=== PATIENT | female | born 1975 | race Hispanic/Latino ===

== ENCOUNTER 2021-04-20 10:03 | Outpatient (CLI) | payer OTHER, SELFPAY ==
--- NOTE | ~2021-04-20 | MM_ITS ---
EXAMINATION: MM screening [place] BI w jese HISTORY: Screening mammogram TECHNIQUE: Craniocaudal and mediolateral oblique 3-D tomosynthesis images were obtained and synthetic 2-D images were generated. CAD analysis was submitted and interpreted. COMPARISON: No prior mammogram is available for comparison at this institution. BREAST PARENCHYMAL COMPOSITION: The breasts are heterogeneously dense, which may obscure small masses . FINDINGS: RIGHT BREAST: There is a low-density mass in the anterior third of the outer breast. LEFT BREAST: There is no evidence of suspicious mass, calcification, or architectural distortion to s uggest malignancy. IMPRESSION: 1. Right breast mass. 2. Additional mammographic views and possible breast ultrasound are recommended. BI-RADS Category 0: Incomplete: Needs additional imaging evaluation. Reviewed, dictated and finalized at location A. IMPRESSION: 1. Right breast mass. 2. Additional mammographic views and possible breast ultrasound are recommended . BI-RADS Category 0: Incomplete: Needs additional imaging evaluation.
== END 2021-04-20 10:04 | disposition home or self-care (01) ==
LOC: ANHIMG 10:06
DX: Z12.31 Encounter for screening mammogram for malignant neoplasm of breast (principal); R92.8 Other abnormal and inconclusive findings on diagnostic imaging of breast
CPT/HCPCS: 77063; 77067

== ENCOUNTER → 2021-05-19 08:34 | Outpatient (CLI) | payer OTHER, SELFPAY ==
--- NOTE | ~2021-05-19 | MMUS_ITS ---
EXAMINATION: MM diagnostic [place] RT w jese, US breast RT complete HISTORY: Right breast mass seen on recent mammogram. TECHNIQUE: Additional 3-D tomosynthesis images of the right breast were performed and synthetic 2-D i mages were generated. CAD analysis was submitted and interpreted. High resolution complete right delio st ultrasound was performed. COMPARISON: Comparison to multiple prior studies sequentially, with oldest reviewed study dated 01/01. BREAST PARENCHYMAL COMPOSITION: The breasts are extremely dense, which lowers the sensitivity of mamm ography. FINDINGS: MAMMOGRAPHIC FINDINGS: There is a periareolar mass in the right breast measuring approximately 1.4 cm. There are no suspicio us calcifications or architectural distortion. ULTRASOUND: There are multiple cysts in the right breast, largest at 9:00, 2 cm from the nipple measuring 1.3 cm corresponding to the mass seen on mammography. At 11:00, 2 cm from the nipple, there is an oval hypoe choic mass which is partially cystic measuring 1.1 x 1 x 0.4 cm, likely a cluster of microcysts. IMPRESSION: 1. Probable benign cluster of microcysts at 11:00, 2 cm from the nipple. 2. Recommend 6 month follow-up targeted right breast ultrasound BI-RADS category 3, probably benign findings. Reviewed, dictated and finalized at location A. IMPRESSION: 1. Probable benign cluster of microcysts at 11:00, 2 cm from the nipple. 2. Recommend 6 month follow-up targeted right breast ultrasound BI-RADS category 3, probably benign findings.
== END ==
DX: R92.8 Other abnormal and inconclusive findings on diagnostic imaging of breast (principal)
CPT/HCPCS: 76641; 77061; 77065; G0279

== ENCOUNTER 2021-06-19 00:37 | Day surgery (SDC) | payer OTHER, SELFPAY ==
[2021-06-02 11:30] VITALS: BMI 21.3
--- NOTE | 2021-06-18 14:15 | PM.HPGS ---
History of Present Illness History of Present Illness Consent: Risks, benefits, and alternatives have been discussed and questions answered. Patient agrees to proceed with procedure. Chief complaint: neoplasm screening Narrative: Binta De Luna is a 46 year old female referred for colon cancer screening. Review of Systems Review of Systems: All systems reviewed & are unremarkable except as noted in HPI and below PMFSH Surgical History Surgical History Hx of tonsillectomy Social History Social History Smoking status: Never smoker Alcohol intake: current Living arrangements: with family Spiritual care concerns: No Meds Home Medications and Allergies Home Medications Medication Instructions Recorded Confirmed Type No Home Medications 06/02/21 06/19/21 History Allergies Allergy/AdvReac Type Severity Reaction Status Date / Time ciprofloxacin Allergy Mild Rash Verified 06/19/21 06:18 Exam Const: General: alert Orientation/consciousness: patient oriented x3 Resp: Auscultation: clear to auscultation bilaterally Cardio: Rhythm: regular rhythm GI: GI Palp: Yes Soft to palpation and No Tenderness to palpation present (GI) Neuro: General: patient oriented x3 Assessment and Plan Assessment and plan (1) Colon cancer screening: Code(s): Z12.11 - Encounter for screening for malignant neoplasm of colon Status: Acute Assessment and Plan: Colonoscopy with possible biopsy or polypectomy or cautery or injection of substances.
[2021-06-19] MEDS: LACTATED RINGERS 1,000 ML 150 ML IV CONT (06:31)
--- NOTE | 2021-06-19 06:43 | WPDANESEPPF ---
Anes - Initial Pre Proc Eval Procedure: Operation Date: 06/19/21 07:30 Proposed Procedures p Screening Colonoscopy - Sukhwinder Aguilar MD Date/Time: 06/19/21 06:43 Surgeon: Sukhwinder Aguilar MD Pre Op Diagnosis: neoplasm screening Patient Data Age: 46 Gender: F Height: 1.52 m Weight: 50.3 kg Allergies Allergy/AdvReac Type Severity Reaction Status Date / Time ciprofloxacin Allergy Mild Rash Verified 06/19/21 06:18 Home Medications Medication Instructions Recorded Confirmed Type No Home Medications 06/02/21 06/19/21 History Patient hx anesthesia problems: none Family hx anesthesia problems: none Results Review: All pre-operative results and documents have been reviewed as part of the pre-operative evaluation. [facility] Surgical History Surgical History (Updated 06/19/21 @ 06:43 by George Segura MD) Hx of tonsillectomy Social History Social History Smoking status: Never smoker Alcohol intake: current Living arrangements: with family Spiritual care concerns: No Anes - Eval Final PreProcedure Day of Procedure 06/19/21 06:43 Patient weight: normal Heart: regular rate and rhythm Lungs: clear to auscultation Airway: Mallampati scale class 1 Neurological: alert and oriented Last oral intake: >/= 8 hours ASA classification: I Emergent: no Anesthetic plan: proceed Anesthesia type and monitoring: general GIVS and standard monitoring Results Review: All pre-operative results and documents have been reviewed as part of the pre-operative evaluation. Informed Consent: The patient's anesthetic plan and its attendant risks and benefits were discussed with the patient/family/POA. Questions were solicited and answers provided to the satisfaction of the patient/family/POA.
[2021-06-19] MEDS: SIMETHICONE ORAL SUSPENSION 20 MG/0.3 ML 30 ML BOTTLE 0.6 ML IRRIGATION (07:38)
[2021-06-19 07:46] VITALS: BP 102/66; PULSE 74; RESP 24; O2SAT 100
[2021-06-19 07:56] VITALS: BP 126/87; PULSE 67; RESP 17; O2SAT 100
[2021-06-19 08:06] VITALS: BP 124/87; PULSE 55; RESP 17; O2SAT 100
== END 2021-06-19 08:19 | disposition home or self-care (01) ==
PROVIDERS: PCP Family Medicine; Visit Provider Internal Medicine Gastroenterology
PROC: 0DJD8ZZ Inspection of Lower Intestinal Tract, Via Natural or Artificial Opening Endoscopic (ICD-10-PCS; CPT 45378; principal; 2021-06-19 07:30)
DX: Z12.11 Encounter for screening for malignant neoplasm of colon (principal)
CPT/HCPCS: 45378; J2001; J2704; J7120

== ENCOUNTER 2022-02-13 17:02 | Emergency (ER) | payer OTHER, SELFPAY ==
--- NOTE | ~2022-02-13 | CT_ITS ---
EXAMINATION: CT abdomen pelvis wo con DATE: 02/13/2022 17:55 INDICATION: RLQ abd pain TECHNIQUE: Computed tomography (CT) of the abdomen and pelvis was performed without intravenous contr ast. Automated exposure control and iterative reconstruction technique were employed. The dose-length product was 214.18 mGy-cm. COMPARISON: None FINDINGS: Lower thorax: Unremarkable Liver: Normal. Biliary/Gallbladder: Gallbladder is collapsed. No bile duct dilation. Pancreas: No mass or duct dilation. Spleen: Normal. Adrenals:No mass. Kidneys: No mass, stone, or hydronephrosis. GI tract: No small or large bowel dilation. Normal appendix. Mesentery/Peritoneum: No ascites, mass, or free air. Retroperitoneum: No mass. Pelvis: Enlarged lobular uterus. The bladder is not well distended. Soft Tissues: Soft tissues and body wall unremarkable. Bones: No acute osseous finding. 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 IMPRESSION: No acute abdominopelvic process detected. Enlarged, lobulated uterus likely secondary to fibroids. Reviewed, dictated and finalized at location K. IMPRESSION: No acute abdominopelvic process detected. Enlarged, lobulated uterus likely sec ondary to fibroids.
--- NOTE | 2022-02-13 17:18 | ED.ABDPAIN ---
HPI - Abdominal Pain General Chief Complaint: Abdominal Pain Stated Complaint: lower pelvic pain. Time Seen by Provider: 02/13/22 17:13 Source: RN notes reviewed History of Present Illness HPI narrative: Patient presents emergency department from home for abdominal pain. Patient states pain began 2 days ago. The pain is located in the right lower quadrant does not radiate described as sharp and stabbing. Patient denies any fevers or chills, denies nausea vomiting diarrhea or any other symptoms. States she took ibuprofen for the pain yesterday but did not take anything today. Denies any dysuria Related Data Allergies Allergy/AdvReac Type Severity Reaction Status Date / Time ciprofloxacin Allergy Mild Rash Verified 02/13/22 17:28 Review of Systems Review of Systems: Gen.: Denies fevers or chills ENT: Denies congestion Respiratory: Denies shortness of breath or cough CV: Denies chest pain or palpitations GI: See HPI denies burning, urgency, frequency or hematuria Musculoskeletal: Denies back pain or muscle pain Neuro: Denies numbness, tingling, weakness or focal weakness Skin: Denies rash Except as documented, all other systems reviewed and negative [facility] Past Medical History Medical History (Updated 02/13/22 @ 19:33 by Greyson Castillo DO) Patient denies significant medical history Surgical History Surgical History Hx of tonsillectomy Social History Social History Smoking status: Never smoker Alcohol intake: current Spiritual care concerns: No Exam Narrative: APPEARANCE: No acute distress, nontoxic, resting in bed HEENT: Normocephalic, atraumatic, OMM RESPIRATORY: No respiratory distress, clear to auscultation bilaterally with no rhonchi wheezing or rales CARDIOVASCULAR: RRR s murmur ABDOMINAL: Soft nondistended tender palpation right lower quadrant but no tenderness in right upper quadrant, left upper quadrant and left lower quadrant no rebound or guarding emerged MUSCULOSKELETAl: Moves all extremities. No clubbing, cyanosis or edema. NEURO: Awake and alert. Following commands, speech normal, no focal deficits SKIN:: Warm, dry. Normal Color PSYCHIATRIC: Normal affect/mood Course Course Emergency Course: Patient states that they are feeling much better at this time. States abdominal pain has improved. Repeat abdominal exam shows the patient's abdomen to be soft with no surgical abdomen present. Discussed with patient results of workup and diagnosis. Discussed need for follow-up with primary care physician, reasons to return to the emergency department in proper use of medication. Patient understands and agrees to current treatment plan Vital Signs Vital signs: Vital Signs Temperature 98.5 F 02/13/22 17:23 Pulse Rate 71 02/13/22 17:23 Respiratory Rate 16 02/13/22 17:23 Blood Pressure 126/80 02/13/22 17:23 Pulse Oximetry 100 02/13/22 17:23 Oxygen Delivery Room Air 02/13/22 17:23 Temperature 98.5 F 02/13/22 17:23 Pulse Rate 71 02/13/22 17:23 Respiratory Rate 16 02/13/22 17:23 Blood Pressure 126/80 02/13/22 17:23 Pulse Oximetry 100 02/13/22 17:23 Oxygen Delivery Room Air 02/13/22 17:23 MDM - Abdominal Pain MDM Narrative Medical decision making narrative: Patient's abdomen is soft without significant pain or signs of surgical abdomen on serial exams. Lab and x-ray evaluations are reviewed and patient is felt to be a reasonable candidate for outpatient management. Patient was instructed as to limitations of x-ray and laboratory evaluation and encouraged to return to ED or primary physician for repeat exam in 12 hours if continued or worsening pain Lab Data Result diagrams: 02/13/22 17:28 02/13/22 17:28 Labs: Lab Results 02/13/22 02/13/22 02/13/22 Range/Units 17:28 17:28 17:28 WBC 4.1 L (4.5-10.0) K/mm3
[2022-02-13 17:23] VITALS: BP 126/80; PULSE 71; RESP 16; TEMP 36.9; O2SAT 100
[2022-02-13] MEDS: KETOROLAC 30 MG/ML VIAL (*BKC) IV PUSH (17:26)
[2022-02-13] MEDS: SODIUM CHLORIDE 0.9% IV 1,000 ML 999 ML IV CONT (17:27)
[2022-02-13 17:33] LABS: Basophils Percent Auto 0.7 % (0.2-1.2); Eosinophils Absolute Auto 0.1 K/mm3 (0-0.3); Eosinophils Percent Auto 1.7 % (0-4.4); Hematocrit 35.9 % (37.0-47.0); Hemoglobin 10.8 g/dL (12.0-15.0); Immature Granulocyte Absolute 0.01 K/mm3 (0.00-0.031); Immature Granulocyte Percent A 0.2 % (0-0.5); Lymphocytes Absolute Auto 0.84 K/mm3 (0.9-3.2); Lymphocytes Percent Auto 20.5 % (18.3-44.2); Mean Corpuscular HGB Conc 30.1 g/dl (32-36); Mean Corpuscular Hemoglobin 24.1 pg (26-34); Mean Corpuscular Volume 80.1 fl (80-100); Mean Platelet Volume 9.7 fl (7.4-10.4); Monocytes Absolute Auto 0.6 K/mm3 (0.1-0.6); Monocytes Percent Auto 13.4 % (2.6-8.5); Neutrophils Absolute Auto 2.6 K/mm3 (1.3-6.7); Neutrophils Percent Auto 63.5 % (45.5-73.1); Platelet Count Result 270 k/mm3 (150-375); Red Blood Count 4.48 M/mm3 (4.2-5.4); Red Cell Distribution Width 18.2 % (11.5-14.5); White Blood Count 4.1 K/mm3 (4.5-10.0)
[2022-02-13 17:36] LABS: Appearance Urine Clear (Clear); Bilirubin Urine Negative (Negative); Blood Urine 1+ (Negative); Color Urine Yellow (Yellow); Glucose Urine UA Negative (Negative); Ketones Urine Negative (Negative); Leukocyte Esterase Ur Negative LEU/UL (Negative); Nitrate Urine Negative (Negative); Protein Urine Negative (Negative); Urobilinogen Urine 0.2 mg/dL (<2.0)
[2022-02-13 17:43] LABS: Alanine Aminotransferase 10 U/L (6-35); Albumin Level 4.8 g/dL (3.5-5.1); Alkaline Phosphatase 81 U/L (38-126); Anion Gap 8 mmol/L (8-16); Aspartate Amino Transferase 23 U/L (14-36); Bilirubin,Total 0.2 mg/dL (0.2-1.3); Blood Urea Nitrogen 11 mg/dL (7-17); Calcium 9.1 mg/dL (8.4-10.2); Carbon Dioxide 26 mmol/L (22-30); Chloride 106 mmol/L (98-107); Estimated CRCL calculation 65 ml/min; Estimated Glomerular Filt Rate > 60; Glucose 99 mg/dL (65-110); Lipase 153 U/L (23-300); Potassium 3.8 mmol/L (3.4-5.0); Sodium 140 mmol/L (137-145)
[2022-02-13 17:48] LABS: Add Urine Microscopic? YES; Mucus Urine Rare /lpf; Squamous Epithelial Cell Urine Rare /hpf (Few); WBC Urine 0-3 /hpf
[2022-02-13 19:45] VITALS: BP 110/70; PULSE 62; RESP 18; O2SAT 100
== END 2022-02-13 19:47 | disposition home or self-care (01) ==
PROVIDERS: Emergency Provider Emergency Medicine; PCP Family Medicine
DX: D25.9 Leiomyoma of uterus, unspecified (principal); R10.31 Right lower quadrant pain
CPT/HCPCS: 36415; 74176; 80053; 81001; 81025; 83690; 85025; 96361; 96365; 96375; 99284; J0131; J1885; J7030

== ENCOUNTER → 2022-05-14 09:12 | Outpatient (CLI) | payer OTHER, SELFPAY ==
--- NOTE | ~2022-05-14 | MMUS_ITS ---
EXAMINATION: MM diagnostic [place] BI w jese, US breast BI complete HISTORY: Multiple right breast cysts. Screening. TECHNIQUE: Full field and spot ML, MLO, CC 3-D tomosynthesis images of both breasts were performed an d synthetic 2-D images were generated. CAD analysis was submitted and interpreted. High resolution bi lateral complete breast ultrasound including all 4 quadrants and subareolar areas was performed. COMPARISON: 05/19/2021 diagnostic right mammogram and complete right breast ultrasound 04/20/2021, 01/01/2019 bilateral screening mammogram examinations BREAST PARENCHYMAL COMPOSITION: The breasts are extremely dense, which lowers the sensitivity of mamm ography. FINDINGS: MAMMOGRAPHIC FINDINGS: Multiple bilateral breast masses are suggested. There are scattered benign calcifications. No maligna nt calcification, architectural distortion, skin thickening or retraction is evident. ULTRASOUND: Numerous bilateral breast cysts are identified, measuring up to 12 mm on the right knee millimeters o n the left. No suspicious solid lesion or shadowing of either breast is detected. IMPRESSION: 1. Benign findings; multiple bilateral breast cysts 2. Routine annual mammographic screening is recommended. BI-RADS Category 2: Benign finding(s). Reviewed, dictated and finalized at location A. IMPRESSION: 1. Benign findings; multiple bilateral breast cysts 2. Routine annual mammographic screening is recommended. BI-RADS Category 2: Benign finding(s).
== END ==
PROVIDERS: PCP Family Medicine
DX: R92.8 Other abnormal and inconclusive findings on diagnostic imaging of breast (principal)
CPT/HCPCS: 76641; 77062; 77066; G0279

== ENCOUNTER 2023-05-10 15:23 | Emergency (ER) | payer OTHER, SELFPAY ==
--- NOTE | 2023-05-10 15:34 | ED.GENADULT ---
HPI - General Adult General Chief complaint: Upper Respiratory Infection Stated complaint: Covid Source: patient and RN notes reviewed History of Present Illness HPI narrative: 48 yo F presents to urgent care with daughter at side. Pt states she was in [place] this past weekend for a and Tuesday night began not feeling well. Pt states the next two days, she was running fevers of 103 F, last one being yesterday. Pt states she tested herself at home and was + for Covid. Pt presents today with complaints of upper chest/bottom of throat pain/tightness when she coughs. Pt states it feels dry. Pt has been drinking honey lemon tea and taking Zyrtec. Denies any SOB, N/V/D, ear pain, sore throat, or congestion. Related Data Home Medications Medication Instructions Recorded Confirmed No Home Medications 05/10/23 05/10/23 Allergies Allergy/AdvReac Type Severity Reaction Status Date / Time ciprofloxacin Allergy Mild Rash Verified 05/10/23 15:38 Review of Systems Review of Systems: Pertinent positives and pertinent negatives per HPI. [facility] Past Medical History Medical History (Updated 05/10/23 @ 15:43 by Ruthie Hope, FAMILY LIFE EDUCATOR) Patient denies significant medical history Surgical History Surgical History Hx of tonsillectomy Social History Social History Smoking status: Never smoker Alcohol intake: current Living arrangements: with family Spiritual care concerns: No Comments At the time of my signature, I reviewed and agree with the nursing past medical, surgical, social, and family history. There is no relevant family history pertinent to the patient complaint. Exam Narrative: GENERAL: This is a well-nourished, well-developed patient, in no apparent distress. HEAD: normocephalic, atraumatic. EYES: Sclera clear/white. Vision is grossly intact. EARS: External ears normal, auditory canals clear and without drainage. Hearing grossly intact. NOSE: External nose normal with no obvious nasal discharge, nares without redness, no rhinorrhea. THROAT: Mucous membranes moist, posterior pharynx clear. NECK: Neck supple, non-tender without lymphadenopathy, masses or thyromegaly. CARDIOVASCULAR: Regular rate and rhythm without murmurs, gallops, or rubs. RESPIRATORY: Clear to auscultation. Breath sounds equal bilaterally. No wheezes, rales, or rhonchi. SKIN: warm, intact with no suspicious lesions or rash, good texture and turgor. NEURO: awake, alert, and oriented to person, place and time. There were no obvious focal neurologic abnormalities. Course Course Level of Care: Express Care Visit Vital Signs Vital signs: reviewed Medical Decision Making MDM Narrative Medical decision making narrative: May take Mucinex at home as directed on the back of the bottle. Get plenty of fluids and rest. Increase your Vitamin C and sun exposure. Differential Diagnosis Differential Diagnosis: viral illness, Covid, bronchitis Critical Care Time Critical Care Time Critical Care Time: No Discharge Plan Discharge Clinical Impression: Viral infection Patient Disposition: Home, Self-Care Condition: Stable Instructions: Antibiotic Form, Viral Syndrome (ED) Additional Instructions: May take Mucinex at home as directed on the back of the bottle. Get plenty of fluids and rest. Increase your Vitamin C and sun exposure. Prescriptions: No Action ibuprofen [IBU] 600 mg tablet 600 mg PO Q6H PRN (Reason: pain) Qty: 20 0RF Follow-up/Referrals: Paulino,Mayela Jose MD [Primary Care Provider] - Time of Disposition: 15:43
[2023-05-10 15:35] VITALS: BP 122/85; PULSE 74; RESP 16; TEMP 36.9; O2SAT 100
== END 2023-05-10 15:45 | disposition home or self-care (01) ==
PROVIDERS: Emergency Provider Nurse Practitioner Family; PCP Family Medicine
DX: B34.9 Viral infection, unspecified (principal)
CPT/HCPCS: 99211; G0463

== ENCOUNTER 2023-08-30 08:32 | Emergency (ER) | payer OTHER, SELFPAY ==
--- NOTE | 2023-08-30 08:33 | ED.FEMALEGU ---
HPI - Female Genitourinary General Chief complaint: Urogenital-Female Stated complaint: Urinary Problems Time Seen by Provider: 08/30/23 08:33 Source: patient Mode of arrival: ambulatory Limitations: no limitations History of Present Illness HPI Narrative: Binta is a 44-year-old female patient presenting to the clinic today with complaints of possible UTI. She reports symptoms started last evening. Complaining of burning, frequency, and urgency of urination. No flank pain or abdominal pain. No fever or chills. Related Data Allergies Allergy/AdvReac Type Severity Reaction Status Date / Time ciprofloxacin Allergy Mild Rash Verified 05/10/23 15:38 Review of Systems Review of Systems: Pertinent positives per HPI. Patient denies any fever, chills, rash, headache, visual changes, dizziness, cough, shortness of breath, chest pain, palpitations, nausea, vomiting, diarrhea, constipation, abdominal pain PMFSH Past Medical History Medical History Patient denies significant medical history Surgical History Surgical History Hx of tonsillectomy Social History Social History Smoking status: Never smoker Alcohol intake: current Living arrangements: with family Spiritual care concerns: No Comments At the time of my signature, I reviewed and agree with the nursing past medical, surgical, social, and family history. There is no relevant family history pertinent to the patient complaint. Exam Narrative: General: Well-developed, well nourished, in no apparent distress. Head: Normocephalic, atraumatic. Cardio: Regular rate and rhythm, s1 and s2 normal, no murmur appreciated. Resp: Clear to auscultation bilaterally, no rhonchi, rales, wheezing or rubs. Abdomen: Soft, pliable, bowel sounds present in all quadrants, non-tender to palpation, no organomegly, no CVAT tenderness. Course Course Emergency Course: Portions of this record may have been created with voice recognition software. Level of Care: Express Care Visit Vital Signs Vital signs: Vital signs reviewed MDM - Female Genitourinary MDM Narrative Medical decision making narrative: At the time of visit patient is resting comfortably on the exam table. Patient appears to be nontoxic. UA positive for blood, protein, and leukocytes. We will send for culture. Will place patient on Bactrim and Pyridium as needed. Supportive measures were discussed with the patient and they voiced understanding discharge instructions and agrees to treatment plan. Return precautions reviewed Differential Diagnosis Differential diagnosis: Likely urinary tract infection and cystitis Discharge Plan Discharge Clinical Impression: Acute lower UTI Patient Disposition: Home, Self-Care Condition: Stable Instructions: Antibiotic Form, Urinary Tract Infection in Women (ED) Additional Instructions: UA is positive for leukocytes, blood, and protein. We will send for culture. Take Bactrim as directed May take Pyridium as needed for discomfort Increase fluids and stay well hydrated Wipe front to back. May use wet wipes. Avoid tub baths If sexually active- pee before and after intercourse. Wear cotton panties Avoid tight clothing up against the genitals Follow up with your PCP in 1 week if symptoms persist. Prescriptions: New sulfamethoxazole-trimethoprim [Bactrim DS] 800-160 mg tablet 1 tablet PO Q12H 5 Days Qty: 10 0RF phenazopyridine [Pyridium] 200 mg tablet 200 mg PO TID PRN (Reason: pain) Qty: 6 0RF Follow-up/Referrals: UNKNOWN,DOCTOR [Non-Staff] - Time of Disposition: 08:46 Quality NIHSS Nursing Documentation ED NIHSS nursing documentation: reviewed/agree
[2023-08-30 08:40] VITALS: BP 118/95; PULSE 85; RESP 16; TEMP 37.6; O2SAT 100
== END 2023-08-30 08:51 | disposition home or self-care (01) ==
PROVIDERS: Emergency Provider Nurse Practitioner Family
DX: N39.0 Urinary tract infection, site not specified (principal); B96.20 Unspecified Escherichia coli [E. coli] as the cause of diseases classified elsewhere
CPT/HCPCS: 81003; 87077; 87086; 87186; 99213; G0463

== ENCOUNTER 2024-05-18 19:56 | Emergency (ER) | payer OTHER, SELFPAY ==
--- NOTE | 2024-05-18 19:57 | ED.URI ---
HPI - URI/Sore Throat General Chief Complaint: Upper Respiratory Infection Stated Complaint: FEVER Time Seen by Provider: 05/18/24 19:57 Source: patient Mode of arrival: ambulatory Limitations: no limitations History of Present Illness HPI Narrative: Binta is a 49-year-old female patient presenting to the clinic today with complaints of nasal congestion and sore throat since yesterday. Fever started at 4:00 this evening and was 103? F Patient took 200mg of Ibuprofen and this did not help her fever so she came in to be evaluated in the clinic today. States her daughter has mono. elicited complaint: fever, sore throat and nasal congestion Related Data Home Medications Medication Instructions Recorded Confirmed Adults Multivitamin 05/18/24 ferrous sulfate 325 mg (65 mg mg 05/18/24 iron) tablet Allergies Allergy/AdvReac Type Severity Reaction Status Date / Time ciprofloxacin Allergy Mild Rash Verified 05/10/23 15:38 Review of Systems Review of Systems: Pertinent positives per HPI. Patient denies any rash, headache, visual changes, dizziness, cough, shortness of breath, chest pain, palpitations, nausea, vomiting, diarrhea, constipation, abdominal pain, or any urinary issues. [facility] Past Medical History Medical History Patient denies significant medical history Surgical History Surgical History Hx of tonsillectomy Social History Social History Smoking status: Never smoker Alcohol intake: current Living arrangements: with family Spiritual care concerns: No Comments At the time of my signature, I reviewed and agree with the nursing past medical, surgical, social, and family history. There is no relevant family history pertinent to the patient complaint. Exam Narrative: General: Well-developed, well nourished, in no apparent distress Head: Normocephalic, atraumatic Eyes: Pupils equally round and reactive to light bilaterally, EOM intact, sclera and conjunctive clear, no discharge, lids normal Ears: TMs intact and clear, ear canals clear, no drainage, grossly hearing normal. Nose: Nares patent, clear discharge, no inflammation, no sinus tenderness. Mouth: Oral pharynx red without lesions or masses, good dentition, MMM. Tonsils surgically absent Neck: Supple, trachea midline, no enlargement of anterior or posterior cervical nodes, no thyroid masses or goiter palpable. Cardio: Regular rate and rhythm, s1 and s2 normal, no murmur appreciated. Resp: Clear to auscultation bilaterally, no rhonchi, rales, wheezing or rubs Course Course Emergency Course: Portions of this record may have been created with voice recognition software. Level of Care: Express Care Visit Vital Signs Vital signs: Vital Signs Temperature 38.6 C H 05/18/24 20:00 Pulse Rate 87 05/18/24 20:00 Respiratory Rate 16 05/18/24 20:00 Blood Pressure 137/83 05/18/24 20:00 Pulse Oximetry 100 05/18/24 20:00 Temperature 38.6 C H 05/18/24 20:12 Pulse Rate 87 05/18/24 20:00 Respiratory Rate 16 05/18/24 20:00 Blood Pressure 137/83 05/18/24 20:00 Pulse Oximetry 100 05/18/24 20:00 Vital signs reviewed MDM - URI/Sore Throat MDM Narrative Medical decision making narrative: At the time of visit patient is resting comfortably on the exam table. Patient appears to be nontoxic. Labs: COVID, influenza, strep, and mono testing was performed. All testing was negative. We will send strep for culture. Plan: I suspect patient has URI/pharyngitis/viral syndrome. Supportive measures were discussed with the patient and they voiced understanding discharge instructions and agrees to treatment plan. Return precautions reviewed Differential Diagnosis Differential diagnosis: Likely upper respiratory infection, otitis m
[2024-05-18 20:00] VITALS: BP 137/83; PULSE 87; RESP 16; TEMP 38.6; O2SAT 100
[2024-05-18 20:12] VITALS: TEMP 38.6
[2024-05-18] MEDS: ACETAMINOPHEN 500 MG TABLET 1000 MG PO (20:12)
[2024-05-18 20:23] LABS: EDCOVIDSCREEN Negative (Negative); EDINFLUASCREEN Negative (Negative); EDINFLUBSCREEN Negative (Negative)
[2024-05-18 20:23] LABS: EDMONONEGPOS Negative (Negative); EDSTREPNEGPOS1 Negative (Negative)
[2024-05-18 20:26] LABS: EDINFLUASCREEN Negative (Negative); EDINFLUBSCREEN Negative (Negative)
== END 2024-05-18 20:34 | disposition home or self-care (01) ==
PROVIDERS: Emergency Provider Nurse Practitioner Family
DX: B34.9 Viral infection, unspecified (principal); J06.9 Acute upper respiratory infection, unspecified; J02.9 Acute pharyngitis, unspecified; Z20.822 Contact with and (suspected) exposure to COVID-19
CPT/HCPCS: 36416; 86308; 87081; 87635; 87804; 87880; 99213; A9270; G0463

== ENCOUNTER 2024-05-21 07:58 | Emergency (ER) | payer OTHER, SELFPAY ==
[2024-05-21 08:03] VITALS: BP 144/90; PULSE 86; RESP 18; TEMP 36.8; O2SAT 100
--- NOTE | 2024-05-21 08:17 | ED.GENADULT ---
HPI - General Adult General Chief complaint: Unspecified Stated complaint: ST, CONCERNED FOR MONO Time Seen by Provider: 05/21/24 08:10 History of Present Illness HPI narrative: 49-year-old female present to the emergency department for evaluation for sore throat. Patient's family member did does test positive for mono. Patient describes body aches sore throat pain with swallowing. Related Data Home Medications Medication Instructions Recorded Confirmed Adults Multivitamin 05/18/24 ferrous sulfate 325 mg (65 mg mg 05/18/24 iron) tablet Allergies Allergy/AdvReac Type Severity Reaction Status Date / Time ciprofloxacin Allergy Mild Rash Verified 05/21/24 08:08 Review of Systems Review of Systems: All systems reviewed & are unremarkable except as noted in HPI and below PMFSH Past Medical History Medical History Patient denies significant medical history Surgical History Surgical History Hx of tonsillectomy Social History Social History Smoking status: Never smoker Alcohol intake: current Living arrangements: with family Spiritual care concerns: No Exam Narrative: APPEARANCE: Well appearing, no pain, no distress, well-nourished. HEAD: normocephalic, atraumatic. EYES: PERRLA/EOMI, conjunctivae clear. NOSE: Normal no drainage EARS:TMS clear with good light reflex. THROAT: No swelling, no lymphadenopathy, bilateral tonsillar exudate NECK: Supple. No adenopathy, no masses. RESPIRATORY: Airway patent, respirations nonlabored. Clear to auscultation bilaterally, no rales, rhonchi, wheezing. CARDIOVASCULAR: Regular rate and rhythm without murmurs rubs or gallops. ABDOMINAL: Soft, nontender, nondistended, normal bowel sounds MUSCULOSKELETAL: Moves all extremities. Strength/ROM intact, No edema, No calf tenderness. NEURO: Alert. Cranial nerves II through XII intact. Good gait. Good coordination SKIN: Warm, dry. Normal Color Course Course Emergency Course: Patient was treated with antibiotics for pharyngitis. Vital Signs Vital signs: Vital Signs Temperature 98.2 F 05/21/24 08:03 Pulse Rate 86 05/21/24 08:03 Respiratory Rate 18 05/21/24 08:03 Blood Pressure 144/90 H 05/21/24 08:03 Pulse Oximetry 100 05/21/24 08:03 Oxygen Delivery Room Air 05/21/24 08:03 Temperature 98.2 F 05/21/24 08:03 Pulse Rate 86 05/21/24 08:03 Respiratory Rate 18 05/21/24 08:03 Blood Pressure 144/90 H 05/21/24 08:03 Pulse Oximetry 100 05/21/24 08:03 Oxygen Delivery Room Air 05/21/24 08:03 Medical Decision Making MDM Narrative Medical decision making narrative: 41-year-old female presents emergency department for evaluation for sore throat. Patient was negative for mono influenza RSV COVID and for strep. Patient did have clinical exam concerning for strep pharyngitis the patient was started on antibiotics. Patient was also treated with a dose of dexamethasone to help with sore throat. Patient was encouraged of close follow-up with her primary care physician. Differential Diagnosis Differential Diagnosis: Influenza, RSV, COVID, strep throat,, pharyngitis Vital Signs Vital Signs: Vital Signs Temperature 98.2 F 05/21/24 08:03 Pulse Rate 86 05/21/24 08:03 Respiratory Rate 18 05/21/24 08:03 Blood Pressure 144/90 H 05/21/24 08:03 Pulse Oximetry 100 05/21/24 08:03 Oxygen Delivery Room Air 05/21/24 08:03 Temperature 98.2 F 05/21/24 08:03 Pulse Rate 86 05/21/24 08:03 Respiratory Rate 18 05/21/24 08:03 Blood Pressure 144/90 H 05/21/24 08:03 Pulse Oximetry 100 05/21/24 08:03 Oxygen Delivery Room Air 05/21/24 08:03 Lab Data Lab results reviewed: Yes I reviewed the patient's lab results. Labs: Lab Results 05/21/24 Range/Units 08:42 Monoscr
[2024-05-21] MEDS: HYDROcodone/acetaminophen (*CRX) 5-325 MG TABLET 1 TAB PO (08:26)
[2024-05-21] MEDS: dexAMETHasone SOD PHOS INJ 10 MG/ML 1 ML VIAL IM (08:26)
[2024-05-21 09:08] LABS: Monoscreen Negative (Negative); Negative Monotest Control Negative (Negative); Positive Monotest Control Positive (Positive)
[2024-05-21 09:14] LABS: Strep Group A RT-PCR NOT DETECTED (Negative)
[2024-05-21 09:25] LABS: Influenza A QL RT-PCR Negative (Negative); Influenza B QL RT-PCR Negative (Negative); RSV RNA, RT-PCR Negative (Negative); SARS-CoV-2 RNA PCR Negative (Negative)
== END 2024-05-21 10:07 | disposition home or self-care (01) ==
PROVIDERS: Emergency Provider Emergency Medicine
DX: J02.9 Acute pharyngitis, unspecified (principal); Z20.822 Contact with and (suspected) exposure to COVID-19
CPT/HCPCS: 36415; 86308; 87637; 87651; 96372; 99283; A9270; J1100